=== PATIENT | male | born 1965 | race Caucasian/White ===

== ENCOUNTER 2020-08-20 11:02 | Outpatient (REF) | payer MEDICARE, MEDICAID, SELFPAY | END 2020-08-20 11:03 | disposition home or self-care (01) | LOC: HO.LAB 11:02 | PROVIDERS: PCP Nurse Practitioner Primary Care; Visit Provider Internal Medicine | DX: Z20.828 Contact with and (suspected) exposure to other viral communicable diseases (principal) | CPT/HCPCS: C9803; U0003 ==

== ENCOUNTER 2021-11-25 16:33 | Emergency (ER) | payer MEDICARE, MEDICAID, SELFPAY ==
--- NOTE | ~2021-11-25 | XR_ITS ---
EXAMINATION: XR HIP, RIGHT CLINICAL INFORMATION: Hip pain COMPARISON: Right hip 12/12/2018 TECHNIQUE: Two views of the right hip. FINDINGS: Status post right hip replacement. Orthopedic components in position. No fracture. No radiographic evidence of loosening. There is marked degenerative arthropathy of the left hip. There is [id number] contact between the femur and acetabulum with flattening of the acetabular and femoral head weightbearing portion of bone. Large marginal bone spurs of femur and acetabulum. Sacroiliac joints are normal. Mild subchondral osteosclerosis inferior symphysis pubis. Mild degenerative spondylosis of lower lumbar spine. XR/XR hip RT min 2V IMPRESSION: 1. No acute abnormality. 2. Status post right hip replacement. 3. Marked degenerative joint disease of left hip.
[2021-11-25 16:36] VITALS: BP 141/114; PULSE 88; RESP 18; TEMP 37.1; O2SAT 97; BMI 37.1
[2021-11-25 18:00] VITALS: BP 164/100; PULSE 78; RESP 18; O2SAT 97
--- NOTE | 2021-11-25 18:00 | PC.NURSE ---
PT STANDING IN DOORWAY. XRAYS TAKEN. WAITING EVAL.
--- NOTE | 2021-11-25 18:13 | ED.EXTPRO ---
HPI - Extremity Problem General Chief complaint: Extremity Injury, Lower Stated complaint: hip pain, had surg 2018 Time Seen by Provider: 11/25/21 17:17 Source: patient Mode of arrival: ambulatory Limitations: no limitations History of Present Illness HPI Narrative: Patient is status post right THR 2019 noticed pain in the right gluteal area for last 3 days no injury able to ambulate put pressure on his right foot pain radiates from the back of the R gluteal area to the leg no paresthesia no motor weakness Related Data Previous Rx's Medication Instructions Recorded ibuprofen 800 mg tablet 800 mg PO Q8H PRN #90 tab 05/16/21 cyclobenzaprine 10 mg tablet 10 mg PO Q8H #20 tab 11/25/21 tramadol 50 mg tablet 50 mg PO Q6H PRN #20 tab 11/25/21 Allergies Allergy/AdvReac Type Severity Reaction Status Date / Time No Known Allergies Allergy Verified 11/25/21 16:36 [No Known Allergies*] Review of Systems Review of Systems: Yes all other systems are reviewed and are negative [facility] Social History Social History Advance Directives: No Advance Directives Information Provided: No Physical Exam Vital Signs: Vital Signs: Last Vital Signs Temp 98.8 F 11/25/21 16:36 Pulse 88 11/25/21 16:36 Resp 18 11/25/21 16:36 BP 141/114 H 11/25/21 16:36 Pulse Ox 97 11/25/21 16:36 BMI result Body Mass Index 37.1 Appearance: Alert. Oriented X3. No acute distress. Extremities: Tenderness right gluteal area/sciatic notch SLR positive at 45 degrees on the right side no motor or sensory deficit good hip movements without any pain patient can stand on right hip without any significant pain No lower extremity edema. No calf tenderness no spinal tenderness Neuro: Oriented X 3. No motor deficit. No sensory deficit Discharge Plan Discharge Clinical Impression: Sciatica Patient Disposition: Home, Self-Care Instructions: Sciatica (ED) Additional Instructions: Take pain medication and muscle relaxant as prescribed Apply ice Prescriptions: New cyclobenzaprine 10 mg tablet 10 mg PO Q8H Qty: 20 0RF tramadol 50 mg tablet 50 mg PO Q6H PRN (Reason: pain) Qty: 20 0RF No Action ibuprofen 800 mg tablet 800 mg PO Q8H PRN (Reason: for pain) Qty: 90 3RF
[2021-11-25] MEDS: oxyCODONE HCl Immed Release 5 MG TABLET 10 MG PO (18:30)
[2021-11-25] MEDS: Cyclobenzaprine HCl 10 MG TABLET PO (18:31)
== END 2021-11-25 18:34 | disposition home or self-care (01) ==
PROVIDERS: Emergency Provider Internal Medicine
DX: M54.31 Sciatica, right side (principal)
CPT/HCPCS: 73502; 99283; 99284

== ENCOUNTER 2021-12-16 12:54 | Outpatient (REF) | payer MEDICARE, MEDICAID, SELFPAY ==
--- NOTE | ~2021-12-16 | XR_ITS ---
EXAMINATION: XR PELVIS XR HIP-RIGHT CLINICAL INFORMATION: Right hip pain. COMPARISON: Pelvis including right hip done on 11/25/2021. TECHNIQUE: Single frontal view of the pelvis and 2 views of the right hip were obtained. FINDINGS: RIGHT HIP AND PELVIS: Postsurgical changes of total right hip arthroplasty is noted with intact hardware and satisfactory alignment. No evidence of any periprosthetic loosening or fracture present. Severe osteoarthrosis of the left hip is noted, similar to prior study. XR/XR hip RT min 2V IMPRESSION: 1. Stable postsurgical changes of right hip arthroplasty showing intact hardware and satisfactory alignment, unchanged since 11/25/2021. 2. Severe osteoarthrosis of the left hip, unchanged since 11/25/2021.
--- NOTE | ~2021-12-16 | XR_ITS ---
EXAMINATION: XR PELVIS XR HIP-RIGHT CLINICAL INFORMATION: Right hip pain. COMPARISON: Pelvis including right hip done on 11/25/2021. TECHNIQUE: Single frontal view of the pelvis and 2 views of the right hip were obtained. FINDINGS: RIGHT HIP AND PELVIS: Postsurgical changes of total right hip arthroplasty is noted with intact hardware and satisfactory alignment. No evidence of any periprosthetic loosening or fracture present. Severe osteoarthrosis of the left hip is noted, similar to prior study. XR/XR pelvis 1-2V IMPRESSION: 1. Stable postsurgical changes of right hip arthroplasty showing intact hardware and satisfactory alignment, unchanged since 11/25/2021. 2. Severe osteoarthrosis of the left hip, unchanged since 11/25/2021.
== END 2021-12-16 12:55 | disposition home or self-care (01) ==
LOC: HO.HOSX 12:54
PROVIDERS: Visit Provider Physician Assistant
DX: T84.84XA Pain due to internal orthopedic prosthetic devices, implants and grafts, initial encounter (principal); G57.01 Lesion of sciatic nerve, right lower limb; M53.3 Sacrococcygeal disorders, not elsewhere classified; Z96.641 Presence of right artificial hip joint
CPT/HCPCS: 72170; 73502; 99202

== ENCOUNTER 2022-04-21 13:48 | Outpatient (REF) | payer MEDICARE, MEDICAID, SELFPAY ==
--- NOTE | ~2022-04-21 | CT_ITS ---
EXAMINATION: CT CHEST SCREENING CLINICAL INFORMATION: Nicotine dependence. Current smoker. COMPARISON: None. TECHNIQUE: Multidetector volumetric CT imaging of the chest is performed without contrast using low dose technique. Additional 2D coronal and sagittal reformatted images and axial 3D maximum intensity projection (MIP) images are generated on the CT workstation. This CT examination was performed using dose optimization techniques as appropriate, variously including the following: *Automated exposure control *Adjustment of mA and/or kV according to patient size (this includes techniques or standardized protocols for targeted exams where dose is matched to indication/reason for exam; i.e. extremities or head) *Use of iterative reconstruction technique DLP: 70 mGy-cm FINDINGS: LUNGS: The lungs are clear with no evidence of pulmonary nodules. There are minimal atelectatic changes in the lingula. MEDIASTINUM: The right thyroid lobe is normal. The left thyroid lobe is atrophic or surgically removed. Central trachea and the bronchi are widely patent. There are small shotty lymph nodes in the mediastinum. The heart size and great vessels are of normal caliber. No pericardial effusion. PLEURA: There is no pleural effusion. No pleural mass or thickening. AXILLA: No lymphadenopathy. UPPER ABDOMEN: Visualized liver, spleen, pancreas and bilateral adrenal glands are unremarkable. OSSEOUS STRUCTURES: There is mild ventral spondylosis of the mid and lower dorsal and upper lumbar spines. No aggressive lytic or sclerotic process is seen. CT/CT lung screening IMPRESSION: No acute process. No pulmonary nodule or mass. Minimal atelectatic changes in the lingula. ASSESSMENT: Lung-RADS category 1: Negative RECOMMENDATION: Low-dose annual CT chest.
== END 2022-04-21 13:49 | disposition home or self-care (01) ==
LOC: HO.CT 13:48
PROVIDERS: PCP Nurse Practitioner Primary Care; Visit Provider Physician Assistant Medical
DX: Z12.2 Encounter for screening for malignant neoplasm of respiratory organs (principal); F17.210 Nicotine dependence, cigarettes, uncomplicated
CPT/HCPCS: 71271; G0296

== ENCOUNTER 2022-09-18 09:07 | Outpatient (REF) | payer MEDICARE, MEDICAID, SELFPAY | END 2022-09-18 09:08 | disposition home or self-care (01) | LOC: HO.HOSX 09:07 | PROVIDERS: Visit Provider Physician Assistant | DX: Z13.89 Encounter for screening for other disorder (principal) ==

== ENCOUNTER 2022-09-21 17:51 | Outpatient (REF) | payer MEDICARE, MEDICAID, SELFPAY ==
--- NOTE | ~2022-09-21 | XR_ITS ---
EXAMINATION: XR HIP, RIGHT CLINICAL INFORMATION: Pain COMPARISON: 12/16/2021 TECHNIQUE: Two views of the right hip. FINDINGS: Status post right total hip arthroplasty without evidence of hardware complication. Severe arthrosis of the left hip joint is again noted. XR/XR hip RT w PEL1V IMPRESSION: Status post right total hip arthroplasty without evidence of hardware complication.
== END 2022-09-21 17:52 | disposition home or self-care (01) ==
LOC: HO.HOSX 17:51
PROVIDERS: Visit Provider Physician Assistant
DX: M16.12 Unilateral primary osteoarthritis, left hip (principal); Z96.641 Presence of right artificial hip joint
CPT/HCPCS: 73502; 99212

== ENCOUNTER → 2022-12-07 13:00 | Outpatient (BNVA) | payer MEDICARE, MEDICAID, SELFPAY | PROVIDERS: PCP Nurse Practitioner Primary Care; Visit Provider Physician Assistant | DX: M16.12 Unilateral primary osteoarthritis, left hip (principal) | CPT/HCPCS: 99212 ==

== ENCOUNTER 2022-12-12 09:12 | Inpatient (IN) | payer MEDICARE, MEDICAID, SELFPAY ==
[2022-12-06 12:28] VITALS: BP 139/66; PULSE 74; RESP 16; O2SAT 96; BMI 36.8
--- NOTE | 2022-12-06 12:52 | P.CONAN_ITS ---
HPI - Anesthesia Eval Consult details Narrative: 57 yo male patient for Left total hip arthroplasty PMFSH Active Problems Active Problems: All Active Problems (Updated 12/06/22 @ 12:16 by Chanda Medina RN) Piriformis syndrome of right side (Acute) Sacroiliac joint pain (Acute) Osteoarthritis of left hip (Acute) Personal history of nicotine dependence (Acute)- Quit 1 year ago H/o ROXANNA. Never used CPAP machine (Never picked up) Past Medical History Medical History (Updated 12/06/22 @ 13:44 by Chanda Medina RN) Depression with anxiety Diabetes mellitus type 2, controlled, without complications History of opioid abuse Hx of drug dependence Hypertension Hypogonadism in male Low testosterone OA (osteoarthritis) Personal history of nicotine dependence Sleep apnea Family History Family history of problems with anesthesia: No Surgical History Surgical History H/O colonoscopy History of back surgery History of incision and drainage History of total right hip replacement (~2018) History of Problems with Anesthesia: No Social History Social History Are you a primary primary care pediatrician to a significant other at home: No Do you presently have visiting nurse or other home services: No Patient Tobacco Use Status: Former Tobacco user Quit Date: 01/2022 Tobacco use type: Cigarette Cigarettes Per Day: 10 Years Smoked: 20 Meds Allergies Allergy/AdvReac Type Severity Reaction Status Date / Time No Known Allergies Allergy Verified 09/21/22 09:46 [No Known Allergies*] Home Medications Medication Instructions Recorded Confirmed Last Taken Type nicotine 7 mg/24 hr daily 1 patch transdermal DAILY PRN 06/05/22 12/06/22 Unknown History transdermal patch Smoking Cessation sildenafil 50 mg tablet (Viagra) 50 mg PO DAILY PRN Erectile 06/05/22 12/05/22 Unknown History Dysfunction Exam Exam Date and Time: December 06, 2022 125 Height,Weight and Vital Signs: Height 5 ft 6 in Weight 103.4 kg Last Vital Signs Pulse 74 12/06/22 12:28 Resp 16 12/06/22 12:28 BP 139/66 12/06/22 12:28 Pulse Ox 96 12/06/22 12:28 O2 Del Method Room Air 12/06/22 12:28 Airway Mallampati Class: III TM Dist: >3cm Neck ROM: Full Loose/Missing/Broken Teeth: Yes (Many missing. Only few teeth in bottom. Denies loose or broken teeth) Heart: RRR + systolic murmur Lungs: CTAB Assessment and Plan Assessment Anesthesia Assessment: Anesthesia Plan Discussed and Chart Reviewed Final Anesthetic Review Family History of Problems with Anesthesia: No History of Problems with Anesthesia: No ASA Class: III Final Preanesthetic Review: No Changes in Pt Med Stat, Meds/Allgs Chart Reviewed, Consent Obtained/Reviewed and Anes Risks/Benef Reviewed Patient Risk: Intermediate Procedure Risk: Intermediate Assessment/Block/Sedation in SS: Assess/Block/Sedation-SS Anesthetic Plan Anesthetic Plan: GA Disposition: Standard PACU and Inp. Admit - Standard Bed
[2022-12-06 15:43] LABS: MRSA Nasal PCR NEGATIVE (Negative); SA Nasal PCR NEGATIVE (Negative)
[2022-12-12] VITALS (15 sets, daily range): BP systolic 89–170; BP diastolic 58–80; PULSE 65–100; RESP 12–20; TEMP 36.6–37.4; O2SAT 95–100
--- NOTE | ~2022-12-12 | XR_ITS ---
EXAMINATION: XR PELVIS CLINICAL INFORMATION: Postop COMPARISON: Previous x-ray September 2022 TECHNIQUE: AP view of the pelvis. FINDINGS: There is a new left hip replacement in satisfactory position. There is a right hip replacement in satisfactory position. No fracture or dislocation. XR/XR pelvis 1-2V IMPRESSION: Satisfactory appearance of left hip replacement.
[2022-12-12 09:40] LABS: Amphetamine Screen Urine Not Detected (Not Detect); Barbiturates, Urine Not Detected (Not Detect); Benzodiazepines Screen Urine Not Detected (Not Detect); Cannabinoid Screen Urine Not Detected (Not Detect); Cocaine Screen Urine Not Detected (Not Detect); Fentanyl, urine Not Detected (Not Detect); Opiate Screen Urine Not Detected (Not Detect); Phencyclidine Screen Urine Not Detected (Not Detect)
[2022-12-12 09:43] LABS: COVID-19 Test Negative (Negative); IDNOW Serial# 55D5AD1C
[2022-12-12 10:04] LABS: Hemoglobin 13.1 g/dl (14.0-18.0)
[2022-12-12] MEDS: oxyCODONE HCl ER 10 MG TAB.ER.12H PO ×2 (10:23→20:12)
[2022-12-12 10:28] LABS: Glucose, Whole Blood 103 mg/dL (60-115)
--- NOTE | 2022-12-12 10:52 | HO.ANESPROP2 ---
HPI - Anesthesia Eval Consult details Narrative: 57 M for left hip replaceent FUnctinal status greater than 4 mets , no chest pain PMFSH Active Problems Active Problems: All Active Problems (Updated 12/06/22 @ 13:44 by Chanda Medina RN) Piriformis syndrome of right side (Acute) Sacroiliac joint pain (Acute) Osteoarthritis of left hip (Acute) Personal history of nicotine dependence (Acute) Past Medical History Medical History Depression with anxiety Diabetes mellitus type 2, controlled, without complications History of opioid abuse Hx of drug dependence Hypertension Hypogonadism in male Low testosterone OA (osteoarthritis) Osteoarthritis of left hip Personal history of nicotine dependence Sleep apnea Functional capacity: independent ambulation Family History Family history of problems with anesthesia: No Surgical History Surgical History H/O colonoscopy History of back surgery History of incision and drainage History of total right hip replacement (~2018) History of Problems with Anesthesia: No Social History Social History Household Members: None Housing: Apartment Are you a primary cardiac care unit nurse to a significant other at home: No Do you presently have visiting nurse or other home services: No Patient Tobacco Use Status: Former Tobacco user Quit Date: last year Tobacco use type: Cigarette Cigarettes Per Day: 10 Years Smoked: 20 years service: No Current occupational status: disabled Meds Allergies Allergy/AdvReac Type Severity Reaction Status Date / Time No Known Allergies Allergy Verified 12/28/22 09:33 [No Known Allergies*] Active Medications: Current Medications Lactated Ringer's (Lr) 1,000 mls @ 100 mls/hr IVCONT .Q10H NED Acetaminophen (Ofirmev) 1,000 mg in 100 mls @ 400 mls/hr IV PREOP ONE Stop: 12/13/22 08:14 Home Medications Medication Instructions Recorded Confirmed Last Taken Type buprenorphine 8 mg-naloxone 2 mg 10 mg sublingual BID 12/12/22 12/12/22 Unknown History sublingual film (Suboxone) metformin 750 mg tablet,extended 750 mg PO DAILY@1700 12/12/22 12/12/22 Unknown History release 24 hr Exam Exam Date and Time: December 12, 2022 1052 Height,Weight and Vital Signs: Height 5 ft 6 in Weight 103.4 kg Last Vital Signs Temp 97.8 F 12/12/22 10:26 Pulse 69 12/12/22 10:26 Resp 15 12/12/22 10:26 BP 170/80 H 12/12/22 10:26 Pulse Ox 95 12/12/22 10:26 O2 Del Method Room Air 12/12/22 10:26 Pertinent Lab Results Pertinent Lab Results: Laboratory Tests 12/06/22 12/06/22 12/12/22 13:31 13:50 09:15 Hgb Hct POC Glucose Nasal Screen MRSA (PCR) NEGATIVE Nasal S. aureus Screen NEGATIVE Nasal MRSA/S.aureus Interp SEE NOTE Urine Opiates Screen Urine Fentanyl Screen Ur Barbiturates Screen Ur Phencyclidine Scrn Ur Amphetamines Screen U Benzodiazepines Scrn Urine Cocaine Screen U Marijuana (THC) Screen COVID-19 (JACQUELINE) Negative COVID-19 Clin Com See Note Blood Type B Positive Antibody Screen NEGATIVE 12/12/22 12/12/22 12/12/22 09:20 09:49 10:19 Hgb 13.1 L Hct 40.0 L POC Glucose 103 Nasal Screen MRSA (PCR) Nasal S. aureus Screen Nasal MRSA/S.aureus Interp Urine Opiates Screen Not Detected Urine Fentanyl Screen Not Detected Ur Barbiturates Screen Not Detected Ur Phencyclidine Scrn Not Detected Ur Amphetamines Screen Not Detected U Benzodiazepines Scrn Not Detected Urine Cocaine Screen Not Detected U Marijuana (THC) Screen Not Detected COVID-19 (JACQUELINE) COVID-19 Clin Com Blood Type Antibody Screen Airway Mallampati Class: III TM Dist: >3cm Denture: Upper Partial: Lower Loose/Missing/Broken Teeth: Yes Assessment and Plan Assessment Anesthesia Assessment: Anesthesia Plan Discussed and Chart Reviewed Final Anesthetic Review Family History of Problems with Anesthesia: No History of Problems with Anesthesia: No NPO: Yes ASA Class: III Final Preanesthetic Review: Meds/Allgs Chart Reviewed, Consent Obtained/Reviewed and Anes Risks/Benef Reviewed Patient Risk: Intermediate Procedure Risk: Intermediate Anesthetic Plan Anesthetic Plan: GA and Agree w/ Assess. and Plan Disposition: Standard PACU and Inp. Admit - Standard Bed
--- NOTE | 2022-12-12 11:19 | MHC.SHP ---
Pre-Procedural Eval Section A Date of Service: 12/12/22 The patient is an INPATIENT: No Changes since office visit: No Cold of Flu in the past 2 weeks, No New Medical Problems, No Changes in Medication and No Patient answered all questions The History & Physical has been completed within 30 days and I have reviewed it.: Yes Section B Chief Complaint: LTHA Allergies: Allergies Allergy/AdvReac Type Severity Reaction Status Date / Time No Known Allergies Allergy Verified 09/21/22 09:46 [No Known Allergies*] Plan I have reviewed the history and physical and performed a pertinent physical examination on my patient. No changes have occurred unless specified. Time Spent With Patient Time: Total time managing care of this patient today ____ minutes.
--- NOTE | 2022-12-12 13:48 | PM.OP ---
Brief Operative Note Date of Service: 12/12/22 Pre-op diagnosis: Left hip OA Post-op diagnosis: same Procedure: Left DIA Implants: [place] Trident 2 50/ Accolade2 #5 127 deg/ +2.5 36 ceramic femoral head Surgeon: Adi Villarreal MD Anesthesia: GETA and local Was an Technology Internship used for this Procedure?: Yes Technology Internship: Cody Hoffman Estimated blood loss (mL): 250 IV fluids (mL): 1,000 Pathology: other Condition: stable Disposition: PACU
[2022-12-12] MEDS: HYDROmorphone HCl 0.5 MG/0.5 ML SYRINGE 0.25 MG IVPUSH ×2 (14:29→20:19)
[2022-12-12] MEDS: 0.9 % Sodium Chloride Flush 3 ML SYRINGE IVFLUSH (16:55)
[2022-12-12] MEDS: Lactated Ringers 1,000 ML 100 ML IVCONT (16:58)
[2022-12-12] MEDS: ceFAZolin Sodium/Dextrose,Iso 2 GM/50 ML PIGGYBACK IV (17:47)
--- NOTE | 2022-12-12 17:51 | HO.PM.IMPN ---
Subjective Subjective Date of Service: 12/12/22 Review of Systems 57-year-old man with history of diabetes mellitus is status post right total hip arthroplasty. Surgery was unremarkable. Patient denies any nausea, vomiting diarrhea with eating or drinking at this point. He is hemodynamically stable. No complaints of pain at this time. Physical Exam Vital Signs: Vital Signs: Last Vital Signs Temp 97.9 F 12/12/22 16:04 Pulse 94 12/12/22 16:21 Resp 20 12/12/22 16:21 BP 135/75 12/12/22 16:21 Pulse Ox 96 12/12/22 16:21 O2 Del Method Nasal Cannula 12/12/22 16:21 O2 Flow Rate 2 12/12/22 16:21 BMI result Body Mass Index 36.8 Appearing in no acute distress head is normocephalic atraumatic eyes pupils are PERRLA sclera is anicteric mouth throat mucous membranes are intact and moist neck is supple no lymphadenopathy, no JVD noted lung sounds are clear to auscultation heart regular rate rhythm, clear S1, S2 positive bowel sounds, abdomen is soft, nontender neuro patient is alert x3, no focal deficits Surgical dressing intact, surgical incision of visualized Objective Data Active Medications Acetaminophen (Acetaminophen 325 Mg Tablet) 650 mg PO Q6H PRN PRN Reason: Pain, Mild (Pain Scale 1-3) Aspirin (Aspirin 325 Mg Tablet) 325 mg PO BID NED Celecoxib (Celecoxib 200 Mg Capsule) 200 mg PO BID NED Docusate Sodium (Docusate Sodium 100 Mg Capsule) 100 mg PO BID NED Hydromorphone HCl (Hydromorphone Hcl 0.5 Mg/0.5 Ml Syringe) 0.25 mg IVPUSH Q4H PRN; Protocol PRN Reason: Pain, Severe (Pain Scale 7-10) Lactated Ringer's (Lr) 1,000 mls @ 100 mls/hr IVCONT .Q10H NED Last Admin: 12/12/22 16:58 Dose: 100 mls/hr Documented By: JONATHAN Cefazolin Sodium/Dextrose (Ancef) 2 gm in 50 mls @ 100 mls/hr IV POSTOP ONE Stop: 12/12/22 18:44 Last Admin: 12/12/22 17:47 Dose: 100 mls/hr Documented By: JONATHAN Ondansetron HCl (Ondansetron Hcl 4 Mg/2 Ml Vial) 4 mg IVPUSH Q8H PRN PRN Reason: Nausea and Vomiting Oxycodone HCl (Oxycodone Hcl Immed Release 5 Mg Tablet) 5 mg PO Q4H PRN PRN Reason: Pain, Moderate (Pain Scale 4-6 Oxycodone HCl (Oxycodone Hcl Er 10 Mg Tab.Er.12h) 10 mg PO BID NED Sodium Chloride (0.9 % Sodium Chloride Flush 3 Ml Syringe) 3 ml IVFLUSH QSHIFT NED Last Admin: 12/12/22 16:55 Dose: 3 ml Documented By: BEIT Labs 12/12/22 09:49 Labs: Laboratory Results - last 24 hr 12/12/22 12/12/22 12/12/22 09:15 09:20 10:19 POC Glucose 103 Urine Opiates Screen Not Detected Urine Fentanyl Screen Not Detected Ur Barbiturates Screen Not Detected Ur Phencyclidine Scrn Not Detected Ur Amphetamines Screen Not Detected U Benzodiazepines Scrn Not Detected Urine Cocaine Screen Not Detected U Marijuana (THC) Screen Not Detected COVID-19 (JACQUELINE) Negative COVID-19 Clin Com See Note Assessment and Plan (1) Osteoarthritis of left hip: Status: Acute Plan 57-year-old man status post left total hip arthroplasty Left total hip arthroplasty Management as per surgical team Pain management Diabetes mellitus type 2 Sliding scale, ADA diet Obesity. BMI 36.8 Discussed importance of weight management as this may be contributing to worsening of other comorbidities DVT prophylaxis with full-dose aspirin Attending Dr. Millan Full code Medical consultation completed. Will sign off Time Spent With Patient Time: Total time managing care of this patient today ____ minutes. Quality Stroke Does the patient have a stroke diagnosis?: No VTE Prior VTE?: No VTE Risk Level:: Medical - moderate - high VTE Device Contraindication: N/A - Device Ordered VTE Drug Contraindication: Treatment Not Indicated
[2022-12-12] MEDS: oxyCODONE HCl Immed Release 5 MG TABLET PO (17:53)
[2022-12-12] MEDS: Celecoxib 200 MG CAPSULE PO (20:12)
[2022-12-12] MEDS: Docusate Sodium 100 MG CAPSULE PO (20:12)
[2022-12-13] MEDS: Lactated Ringers 1,000 ML 100 ML IVCONT (02:37)
[2022-12-13] MEDS: HYDROmorphone HCl 0.5 MG/0.5 ML SYRINGE 0.25 MG IVPUSH ×3 (02:44→16:48)
[2022-12-13 03:20] VITALS: BP 119/59; PULSE 90; RESP 18; TEMP 36.8; O2SAT 95
[2022-12-13 04:00] VITALS: RESP 18
[2022-12-13 06:12] LABS: MANUAL DIFF FLAG NO
[2022-12-13 06:16] LABS: Basophils Percent Auto 0.2 % (0-2); Eosinophils Percent Auto 0.1 % (0-4); Hematocrit 29.2 % (42.0-52.0); Hemoglobin 9.6 g/dl (14.0-18.0); Imm Gran Abs Auto 0.08 X10*3/uL (0.00-0.03); Imm Gran Pct Auto 0.6 % (0.0-0.4); Lymphocytes Absolute Auto 1.6 X10*3/uL (1.2-4.9); Lymphocytes Percent Auto 13.2 % (20-40); Mean Corpuscular HGB Conc 32.9 g/dl (31.0-36.0); Mean Corpuscular Hemoglobin 29.4 pg (27.0-33.0); Mean Corpuscular Volume 89.6 fL (80.0-98.0); Mean Platelet Volume 10.5 fL (9.4-12.4); Monocytes Absolute Auto 1.3 X10*3/uL (0.1-1.2); Monocytes Percent Auto 10.4 % (2-11); Neutrophils Absolute Auto 9.4 x10*3/uL (2.0-8.3); Neutrophils Percent Auto 75.5 % (45-73); Platelet Count 158 X10*3/uL (160-400); Red Blood Count 3.26 X10*6/uL (4.60-5.80); Red Cell Distribution Width 13.7 % (11.0-16.0); White Blood Count 12.4 X10*3/uL (4.8-10.8)
[2022-12-13 06:42] LABS: Anion Gap 11 (12-20); Blood Urea Nitrogen 17 mg/dL (9-16); Calcium 8.2 mg/dL (8.4-10.2); Carbon Dioxide 24 mmol/L (22-29); Chloride 108 mmol/L (96-108); Creatinine Clr Calc Pharmacy 109.2; Estimated Glomerular Filt Rate > 60; Glucose Fasting 172 mg/dL (60-99); Sodium 139 mmol/L (135-145)
[2022-12-13 07:29] VITALS: BP 110/56; PULSE 76; RESP 17; TEMP 36.7; O2SAT 98
--- NOTE | 2022-12-13 08:05 | PM.PNORT ---
Subjective Subjective Date of Service: 12/13/22 Interval history: pod 1 status post left total hip arthroplasty with Dr. Villarreal. Patient is resting in bed comfortably. Pain is well managed. No additional complaints. Physical Exam Vital Signs: Vital Signs: Last Vital Signs Temp 98.1 F 12/13/22 07:29 Pulse 76 12/13/22 07:29 Resp 17 12/13/22 07:29 BP 110/56 L 12/13/22 07:29 Pulse Ox 98 12/13/22 07:29 O2 Del Method Room Air 12/13/22 07:29 O2 Flow Rate 2.5 12/12/22 23:48 BMI result Body Mass Index 36.8 Const: General: cooperative, healthy appearing and no acute distress Resp: Effort & Inspection: normal respiratory effort and able to speak in complete sentences Cardio: Rate: regular rate Peripheral pulses: Peripheral pulses 2+ throughout GI: Palpation (GI): Soft to palpation Skin: Lesions: no lesions Rashes: no rashes Extrem: Other: Left hip Aquacel dressing is clean dry and intact. Able to dorsiflex and plantar flex. NVI. Procedures Date of Service Date of Service: 12/13/22 Progress Note: A&P Assessment and plan (1) Status post total hip replacement, left: Status: Acute Plan Continue pain mgmnt Begin ASA for dvt ppx begin PT/OT for LTHA Dispo planning-Pending PT eval, pain mgmnt Time Spent With Patient Time: Total time managing care of this patient today ____ minutes. Quality Stroke Does the patient have a stroke diagnosis?: No VTE Prior VTE?: No VTE Risk Level:: Medical - moderate - high VTE Device Contraindication: N/A - Device Ordered VTE Drug Contraindication: Treatment Not Indicated
[2022-12-13] MEDS: Acetaminophen 325 MG TABLET 650 MG PO (08:28)
[2022-12-13] MEDS: oxyCODONE HCl Immed Release 5 MG TABLET PO (08:28)
[2022-12-13] MEDS: oxyCODONE HCl ER 10 MG TAB.ER.12H PO ×2 (08:28→19:45)
[2022-12-13] MEDS: Celecoxib 200 MG CAPSULE PO ×2 (08:29→19:44)
[2022-12-13] MEDS: Docusate Sodium 100 MG CAPSULE PO ×2 (08:29→19:44)
--- NOTE | 2022-12-13 11:27 | MHC.CM.PN ---
IMM 12/13/22 Male s/p L DIA He lives by himself. He is independent with all functional mobility. A copy of his HCP has been requested. PT eval rec Home Services. Patients preference is [facility]. PMH R DIA patient went to [facility] and then Home with services. He would like to go for [facility] @ discharge. He does not qualify for STR per PT eval. CM will follow for any new needs @ discharge. Patient will arrange for transportation.
[2022-12-13] MEDS: Aspirin 325 MG TABLET PO ×2 (12:15→19:44)
--- NOTE | 2022-12-13 12:45 | HO.POSTANES ---
Post Anesthesia Evaluation Post Anesthesia Evaluation Vital Signs: Vital Signs Temp Pulse Resp BP Pulse Ox O2 Del Method 12/13/22 07:29 98.1 F 76 17 110/56 L 98 Room Air 12/13/22 03:20 98.3 F 90 18 119/59 L 95 Room Air 12/13/22 04:00 18 Anesthesia: General Mental Status: Awake Pain Control: Satisfactory Nausea/Vomiting: None Hydration: Adequate Anesthesia-Related Issues: No Anes. Related Issues
[2022-12-13 15:52] VITALS: BP 115/56; PULSE 93; RESP 18; TEMP 36.6; O2SAT 94
[2022-12-13] MEDS: 0.9 % Sodium Chloride Flush 3 ML SYRINGE IVFLUSH ×2 (15:52→19:47)
[2022-12-13 19:35] VITALS: BP 107/55; PULSE 89; RESP 17; TEMP 36.3; O2SAT 95
[2022-12-14 03:29] VITALS: BP 118/59; PULSE 86; RESP 16; TEMP 36.6; O2SAT 97
[2022-12-14] MEDS: HYDROmorphone HCl 0.5 MG/0.5 ML SYRINGE 0.25 MG IVPUSH (04:34)
[2022-12-14 06:35] LABS: MANUAL DIFF FLAG NO
[2022-12-14 06:38] LABS: Basophils Percent Auto 0.3 % (0-2); Eosinophils Absolute Auto 0.1 X10*3/uL (0.0-0.4); Eosinophils Percent Auto 0.6 % (0-4); Hemoglobin 9.3 g/dl (14.0-18.0); Imm Gran Abs Auto 0.07 X10*3/uL (0.00-0.03); Imm Gran Pct Auto 0.6 % (0.0-0.4); Lymphocytes Absolute Auto 2.1 X10*3/uL (1.2-4.9); Lymphocytes Percent Auto 17.9 % (20-40); Mean Corpuscular HGB Conc 33.2 g/dl (31.0-36.0); Mean Corpuscular Hemoglobin 30.1 pg (27.0-33.0); Mean Corpuscular Volume 90.6 fL (80.0-98.0); Mean Platelet Volume 10.6 fL (9.4-12.4); Monocytes Absolute Auto 1.4 X10*3/uL (0.1-1.2); Monocytes Percent Auto 11.8 % (2-11); Neutrophils Percent Auto 68.8 % (45-73); Platelet Count 150 X10*3/uL (160-400); Red Blood Count 3.09 X10*6/uL (4.60-5.80); Red Cell Distribution Width 14.1 % (11.0-16.0); White Blood Count 11.6 X10*3/uL (4.8-10.8)
[2022-12-14 06:59] LABS: Anion Gap 11 (12-20); Blood Urea Nitrogen 17 mg/dL (9-16); Calcium 8.3 mg/dL (8.4-10.2); Carbon Dioxide 28 mmol/L (22-29); Chloride 105 mmol/L (96-108); Creatinine Clr Calc Pharmacy 122.7; Estimated Glomerular Filt Rate > 60; Glucose Fasting 122 mg/dL (60-99); Potassium 4.2 mmol/L (3.3-5.1); Sodium 140 mmol/L (135-145)
[2022-12-14] MEDS: Celecoxib 200 MG CAPSULE PO (07:35)
[2022-12-14] MEDS: traMADoL HCL 50 MG TABLET PO (07:35)
[2022-12-14] MEDS: Acetaminophen 325 MG TABLET 650 MG PO (07:35)
[2022-12-14] MEDS: Aspirin 325 MG TABLET PO (07:35)
[2022-12-14] MEDS: Docusate Sodium 100 MG CAPSULE PO (07:35)
[2022-12-14 09:03] VITALS: BP 119/57; PULSE 102; RESP 20; TEMP 36.7; O2SAT 97
--- NOTE | 2022-12-14 09:21 | PC.NURSE ---
pt stated po pain meds decreased pain from 10/10 to 8/10
--- NOTE | 2022-12-14 10:03 | P.DS_ITS ---
DS: Providers Provider Date of Service: 12/14/22 Date of admission: 12/12/22 09:12 Primary care physician: Whit Montes De Oca NP Consults: 12/12/22 16:39 Consult to Hospitalist Routine Comment: Consulting Provider: Hospitalist Reason For Exam: medical managment DS: Diagnosis Discharge Diagnosis (1) Status post total hip replacement, left: Status: Acute DS: Summary Hospital Course Hospital Course: The patient underwent a successful left total hip arthroplasty on 12/12/22, was transferred to PACU and then to the floor to recover. During their stay, their vitals were stable, afebrile at . Labs were unremarkable, H/H . POD 1 he was started on ASA for DVT ppx, they also received Physical Therapy services twice a day. Physical therapy should include gait training, ROM and strengthening . Posterior precautions in place. Prior to discharge, his dressing was changed, incision clean dry and intact, new Aquacel dressing applied. The Aquacel dressing shoulder remain intact and dry at all times. Any concerns with the dressing, please contact orthopedic office. No showering. The plan is to be discharged home with VNA services. Time Spent with Patient Time attestation: Total time managing care of this patient today ____ minutes. Discharge coordination time: Less than 30 minutes Quality: Safe Use of Opioids Does Pt have an Active Cancer Diagnosis on the Problem List?: No Quality: Stroke Does the patient have a stroke diagnosis?: No Physical Exam Vital Signs: Vital Signs: Last Vital Signs Temp 98.0 F 12/14/22 09:03 Pulse 102 H 12/14/22 09:03 Resp 20 12/14/22 09:03 BP 119/57 L 12/14/22 09:03 Pulse Ox 97 12/14/22 09:03 O2 Del Method Room Air 12/14/22 09:03 O2 Flow Rate 2.5 12/12/22 23:48 BMI result Body Mass Index 36.8 Const: General: cooperative, healthy appearing and no acute distress Resp: Effort & Inspection: normal respiratory effort and able to speak in complete sentences Cardio: Rate: regular rate Peripheral pulses: Peripheral pulses 2+ throughout GI: Palpation (GI): Soft to palpation Skin: Lesions: no lesions Rashes: no rashes Extrem: Other: Left hip Aquacel dressing is clean dry and intact. Able to dorsiflex and plantar flex. NVI. DS: Data Data Completed and Pending Pending studies at discharge: Pending at discharge 12/12/22 12:56 Surgical [PTH] Routine Labs on day of discharge: Laboratory Results - last 24 hr 12/14/22 12/14/22 05:54 05:54 WBC 11.6 H RBC 3.09 L Hgb 9.3 L Hct 28.0 L MCV 90.6 MCH 30.1 MCHC 33.2 RDW 14.1 Plt Count 150 L MPV 10.6 Immature Gran % (Auto) 0.6 H Neut % (Auto) 68.8 Lymph % (Auto) 17.9 L [place] % (Auto) 11.8 H Eos % (Auto) 0.6 Baso % (Auto) 0.3 Lymph # (Auto) 2.1 [place] # (Auto) 1.4 H Eos # (Auto) 0.1 Baso # (Auto) 0.0 Abs Immat Gran (auto) 0.07 H Absolute Neuts (auto) 8.0 Absolute Nucleated RBC 0.000 Nucleated RBC % (auto) 0.0 Sodium 140 Potassium 4.2 Chloride 105 Carbon Dioxide 28 Anion Gap 11 L BUN 17 H Creatinine 0.73 Estim Creat Clear Calc 122.7 Estimated GFR > 60 Fasting Glucose 122 H Calcium 8.3 L Discharge Plan Discharge Anticipated Discharge Date/Time: 12/14/22 09:49 Patient Disposition: Home Health Service Discharge Diagnosis: LT DIA Referrals: Bailee Hernandez PA-C [Physician Showroom Sales Consultant] - 2 Weeks (12/28/22 3:00 [facility] Orthopedic Surgeons Bailee Hernandez PA-C) Discharge Medications: New docusate sodium 100 mg Capsule 100 mg PO BID 14 Days Qty: 28 0RF celecoxib 200 mg Capsule 200 mg PO BID 30 Days Qty: 60 0RF aspirin 325 mg Tablet 325 mg PO BID 42 Days Qty: 84 0RF acetaminophen 325 mg Tablet 650 mg PO Q6H PRN (Reason: Pain, Mild (Pain Scale 1-3)) 30 Days Qty: 240 0RF Continued metformin 750 mg tablet extended release 24 hr 750 mg PO DAILY@1700 buprenorphine-naloxone [Suboxone] 8-2 mg film 10 mg sublingual BID Discharge Orders: Discharge Order (Routine); Ordered 12/14/22 Ordered By: Cody Hoffman Diet: Regular diet Activity on Discharge: Use cane or walker Stand Alone Forms: Patient Portal Discharge page Care Plan Goals: Restore function of joint Health Concerns: none Plan of Treatment: Physical Therapy Pain management DVT prophylaxis Assessment: * Physical Therapy for Total hip arthroplasty: wbat, posterior precautions, gait training, ROM, strength * Limit stair climbing * No showering, no tub bath-keep dressing clean, dry and intact * No driving x6 weeks * Continue Aspirin twice a day x 6 weeks * Follow up with [facility] Orthopedics in 2 weeks: 12/28/22 3:00[facility] Orthopedic SurgeonsBailee Hernandez PA-C * --you will also have your first out patient PT eval on the day of your post op appt-so please plan on being in the office that day for an extended period of time.
--- NOTE | 2022-12-14 10:06 | P.F2F_ITS ---
Service Date Service Date: 12/14/22 Encounter Date of encounter: 12/14/22 Reasons for Services Signs and symptoms assessed: diff with ambulation, poor balance. Reason for physical therapy: home safety and mobility, therapeutic exercises, restore joint function, gait/transfer training, ADL training and energy conservation Reason for occupational therapy: home safety and mobility, therapeutic exercises, restore joint function, gait/transfer training, ADL training and energy conservation Overseeing Care: Adi Villarreal Homebound: Leaving the home is medically contraindicated at this time without the asist of a device and/or another person due th the listed conditions above and below. Reason homebound: unsteady gait / fall risk, pain with ambulation, poor balance / fall risk, shortness of breath at rest and unable to drive Homebound supporting statement: Pt. is considered home bound due to recent surgery. Unable to drive, poor balance, poor gait mechanics. Certification: Based on the above findings, I certify that this patient is confined to the home and needs intermittent long-term care, physical therapy and/or speech therapy, or continues to need occupational therapy. The patient is under my care, and I have initiated the establishment of the plan of care. The patient will be followed by a physician who will periodically review the plan of care. Time Spent With Patient Time: Total time managing care of this patient today ____ minutes.
[2022-12-14 10:07] VITALS: PULSE 92
--- NOTE | 2022-12-14 10:35 | MHC.CM.PN ---
IMM 12/13/22 Male S/P LT DIA is discharged home with [facility]. He has arranged for transport home.
--- NOTE | 2022-12-14 11:21 | PC.NURSE ---
pt educated on discharge paperwork, all belongings with pt. IV removed. tele not in place
--- NOTE | 2022-12-14 15:12 | W.PM.OPN ---
Operative Note Operative Note Date of Service: 12/14/22 Narrative: Date of Service: 12/12/22 Pre-op diagnosis: Left hip OA Post-op diagnosis: same Procedure: Left DIA Implants: [employer] Trident 2 50/ Accolade2 #5 127 deg/ +2.5 36 ceramic femoral head Surgeon: Adi Villarreal MD Anesthesia: GETA and local Was an Inspector Plating used for this Procedure?: Yes Inspector Plating: Cody Hoffman Estimated blood loss (mL): 250 IV fluids (mL): 1,000 Pathology: other Condition: stable Disposition: PACU Procedure in detail: Patient was brought into the operating room and placed in the right lateral decubitus position. All bony prominences were well padded and the limb was prepped and draped in standard sterile fashion. A time-out was called to identify proper site procedure proper surgeon IV antibiotics and 1 g of transaxemic acid were administered. I began by making a curvilinear incision over the posterolateral aspect of the greater trochanter. Dissection was taken down to the tensor fascia which was incised in line with the incision and a Charnley retractor was placed. Cautery was used to maintain hemostasis. The hip was internally rotated and the external rotators were identified. The vessels were cauterized and a full-thickness capsular/external rotator layer was developed starting just proximal to the piriformis. This layer was tagged and a dull Hohmann retractor was placed underneath the neck in the hip was dislocated. A neck cut was made 1 cm proximal to the lesser trochanter and the head and neck were removed and measured 50mm on the back table. The head was deformed and eburnated. I then removed the labrum and cauterized the fovea. I started with a 46 reamer and medialized to the inner table. I sequentially reamed up to a size 50 and impacted a 50mm cup at 45 degrees of inclination and 25 degrees of version. I then placed a liner and turned my attention to the femur. I identified the piriformis insertion and used this as a starting point for my leeanna cutter. The medius tendon was protected with a Hibs retractor. A Charnley awl was inserted in the canal and a curved curette used to remove the lateral bone. I irrigated copiously. I then sequentially broached in the patient's natural version to a size 5 and placed my trial implants. I used a #5/127/+2.5 based on my pre-operative template and his conmtralateral measurements. Using a trail head I took the hip through range of motion. I was satisfied with the stability. I removed all instrumentation and copiously irrigated. I placed my final femoral implant and again took the hip through range of motion and was satisfied with the stability and length. The final 2.5 implant was impacted in place and tyhe hip reduced. I then irrigated for 3 minutes with iodine and placed 1 g of local transaxemic acid. I performed a capsular closure with 2.0 fiberwire, Vandana's fascia with 0 Vicryl, subcuticular with 2-0 Vicryl and the skin with kurtis. Patient was placed into a sterile dressing. Patient was extubated brought to the recovery room in stable condition. There were no known complications.
== END 2022-12-14 11:21 | disposition home health service (06) | DRG 470 ==
LOC: HO.SSSA 11:29 → HO.S3 15:55
PROVIDERS: Nurse Practitioner; Physician Assistant; Admitting Provider Orthopaedic Surgery; PCP Nurse Practitioner Primary Care; Visit Provider Orthopaedic Surgery
PROC: 0SRB03A Replacement of Left Hip Joint with Ceramic Synthetic Substitute, Uncemented, Open Approach (ICD-10-PCS; CPT 27130; principal; 2022-12-12 11:50)
DX: M16.12 Unilateral primary osteoarthritis, left hip (principal); F11.20 Opioid dependence, uncomplicated; E66.9 Obesity, unspecified; Z68.36 Body mass index [BMI] 36.0-36.9, adult; Z20.822 Contact with and (suspected) exposure to COVID-19; Z87.891 Personal history of nicotine dependence; Z79.84 Long term (current) use of oral hypoglycemic drugs; Z79.899 Other long term (current) drug therapy
CPT/HCPCS: 27130; 36415; 72170; 80048; 80307; 82947; 85014; 85018; 85025; 86850; 86900; 86901; 87635; 87640; 87641; 88304; 88311; 97116; 97161; 97530; C1713; C1776; J0131; J0690; J1100; J1170; J2250; J2370; J2405; J2795; J3010

== ENCOUNTER → 2022-12-21 09:39 | Outpatient (BNVA) | payer MEDICARE, MEDICAID, SELFPAY | PROVIDERS: PCP Nurse Practitioner Primary Care; Visit Provider Physician Assistant ==

== ENCOUNTER 2022-12-28 07:05 | Outpatient (REF) | payer MEDICARE, MEDICAID, SELFPAY ==
--- NOTE | ~2022-12-28 | XR_ITS ---
EXAMINATION: XR PELVIS CLINICAL INFORMATION: Pain. COMPARISON: Radiographs dated 12/12/2022. TECHNIQUE: 2 AP views of the pelvis are submitted. FINDINGS: Bony alignment and mineralization are normal. There are intact bilateral hip total arthroplasties. No hardware failure or loosening is seen. There is no periprosthetic fracture. The bilateral sacroiliac joints are symmetric and well-maintained. The pubic symphysis is intact. There are incompletely characterized degenerative changes of the lumbar spine. XR/XR pelvis 1-2V IMPRESSION: There are intact bilateral hip total arthroplasties.
== END 2022-12-28 07:06 | disposition home or self-care (01) ==
LOC: HO.HOSX 07:05
PROVIDERS: Visit Provider Physician Assistant
DX: Z47.1 Aftercare following joint replacement surgery (principal); Z96.642 Presence of left artificial hip joint
CPT/HCPCS: 72170; 99212

== ENCOUNTER 2023-10-05 09:14 | Outpatient (REF) | payer OTHER, MEDICAID, SELFPAY ==
[2023-10-05 12:30] LABS: Alanine Aminotransferase 21 U/L (0-40); Albumin Level 4.4 g/dL (3.5-5.0); Alkaline Phosphatase 55 U/L (39-117); Anion Gap 17 (12-20); Aspartate Amino Transferase 21 U/L (5-37); Bilirubin Total 0.6 mg/dL (0.0-1.0); Blood Urea Nitrogen 17 mg/dL (9-16); Calcium 9.6 mg/dL (8.4-10.2); Carbon Dioxide 25 mmol/L (22-29); Chloride 103 mmol/L (96-108); Cholesterol 177 mg/dL (<200); Estimated Glomerular Filt Rate > 60; Glucose Random 97 mg/dL (60-115); HDL Cholesterol 40 mg/dL (>40); LDL Cholesterol Calculated 114 mg/dL (<100); Potassium 4.5 mmol/L (3.3-5.1); Sodium 140 mmol/L (135-145); Total Protein 7.9 g/dL (6.5-8.0); Triglycerides 119 mg/dL (<150)
[2023-10-14 12:49] LABS: Testosterone, Total 269 ng/dL (250-1100)
== END 2023-10-05 09:15 | disposition home or self-care (01) ==
LOC: HO.HHCL 09:14
PROVIDERS: Visit Provider Nurse Practitioner Primary Care
DX: R03.0 Elevated blood-pressure reading, without diagnosis of hypertension (principal); R79.89 Other specified abnormal findings of blood chemistry; R73.03 Prediabetes
CPT/HCPCS: 36415; 80053; 80061; 84402; 84403

== ENCOUNTER 2024-05-16 08:44 | Outpatient (REF) | payer OTHER, MEDICAID, SELFPAY ==
[2024-05-16 12:09] LABS: Estimated Average Glucose 120 mg/dL; Hemoglobin A1C 132.7277 umol/L; Hemoglobin A1c % 5.8 % (<6.0)
[2024-05-16 12:31] LABS: Alanine Aminotransferase 18 U/L (0-40); Albumin Level 4.2 g/dL (3.5-5.0); Alkaline Phosphatase 54 U/L (39-117); Anion Gap 11 (12-20); Aspartate Amino Transferase 21 U/L (5-37); Bilirubin Total 0.7 mg/dL (0.0-1.0); Blood Urea Nitrogen 14 mg/dL (9-16); Calcium 9.3 mg/dL (8.4-10.2); Carbon Dioxide 24 mmol/L (22-29); Chloride 112 mmol/L (96-108); Cholesterol 180 mg/dL (<200); Estimated Glomerular Filt Rate > 60; Glucose Random 96 mg/dL (60-115); HDL Cholesterol 46 mg/dL (>40); LDL Cholesterol Calculated 119 mg/dL (<100); Potassium 4.6 mmol/L (3.3-5.1); Sodium 142 mmol/L (135-145); Total Protein 7.1 g/dL (6.5-8.0); Triglycerides 78 mg/dL (<150)
[2024-05-16 12:45] LABS: HIV AB/AG Nonreactive (Nonreactive); HIV Num 1 0.05 S/CO (0.00-0.99); ~HepC Num1 0.11 S/CO (0.00-0.79); ~Hepatitis C Antibody Nonreactive (Nonreactive)
[2024-05-16 12:48] LABS: Vitamin B12 346 pg/mL (200-900)
[2024-05-16 12:50] LABS: TSH reflex Free T4 2.43 uIU/mL (0.32-4.0)
[2024-05-19 13:38] LABS: RPR Rapid Plasma Reagin NON-REACTIVE (NON-REACTIVE)
== END 2024-05-16 08:45 | disposition home or self-care (01) ==
LOC: HO.HHCL 08:44
PROVIDERS: Visit Provider Nurse Practitioner Primary Care
DX: E11.59 Type 2 diabetes mellitus with other circulatory complications (principal); I15.2 Hypertension secondary to endocrine disorders; R20.0 Anesthesia of skin; R20.2 Paresthesia of skin; Z11.3 Encounter for screening for infections with a predominantly sexual mode of transmission
CPT/HCPCS: 36415; 80053; 80061; 82607; 83036; 84443; 86592; 86803; 87389

== ENCOUNTER 2024-12-10 08:09 | Outpatient (REF) | payer OTHER, SELFPAY ==
--- OUTSIDE RECORDS SUMMARY | 2024-12-10 08:15 | XMS_ITS | Encounter Summary ---
Author Organization [employer] Address [address] [facility] [facility] [address] [place] [address] Care Team Providers Care Sample Carrier Name Role Phone Whit Montes De Oca Primary Care Provider [phone] Reason for Visit * Reason Onset Date Comments Created in error 03/21/2024 Encounter Details Date Type Department Care Team ([facility] st Contact Info) Description 03/21/2024 Telephone [facility] MEDICINE [address] [place], [place] [phone] Whit Montes D eOca ANP [address] [place], [place] [phone] Created in error Social History Tobacco Use Types Packs/Day Years Used Date Smoking Tobacco: Former Cigarettes Smokeless Tobacco: Never Alcohol Use Standard Drinks/Week Comments Not Currently 0 (1 standard drink = 0.6 oz pur e alcohol) Housing Stability Answer Date Recorded What is your housing situation today? I have sidra ferrari 11/23/[address] you li ve. Do you have problems with any of the following? I am not sure 11/23/2023 Food Insecurity Answer Date Recorded Within the past 12 months, y ou worried that your food would run out before you got money to buy more: Often true 11/23/2023 Within the past 12 months,th e food you bought just didn't last and you didn't have enough money to get more: Often true Transportation Answer Date Recorded In the past 12 months, has l ack of transportation kept you from medical appts, meetings, work or from getting things needed for daily living? No 07/14/2023 Utilities Answer Date Recorded In the past 12 months, has t he electric, gas, oil or water company threatened to shut off services in your home? No 07/14/2023 Sex and Gender Information Value Date Recorded Sex Assigned at Male 07/03/2022 10:32 AM EDT Legal Sex Male 10:32 AM EDT Gender Identity Male 07/03/2022 10:32 AM EDT Sexual Orientation Choose not to disclose 2021 10:32 AM EDT documented as of this encounter Plan of Treatment Upcoming Encounters Date Type Department Care Team (Late st Contact Info) Description 01/22/2025 9:15 AM EDT Office Visit [facility] MEDICINE [address] [place] [address] Whit Montes De Oca ANP [address] [place] [address] documented as of this encounter Visit Diagnoses Not on filedocumented in this encounter Care Teams Sample Carrier Relationship Specialty Start Date End Date Whit Montes De Oca ANP [address] [place] [address] PCP - General Family Medicine 03/03/20 documented as of this encounter
--- OUTSIDE RECORDS SUMMARY | 2024-12-10 08:15 | XMS_ITS | Encounter Summary ---
Author Organization [employer] [facility] Address [address] [facility] [address] [place] [address] Care Team Providers Care Reach Lift Truck Driver Name Role Phone Whit Montes De Oca Primary Care Provider [phone] Encounter Details Date Type Department Care Team (Latest Contact Info) Description 12/30/2018 Abstract [facility] CONVERSIONS Dental, Provider, DDS Social History Tobacco Use Types Packs/Day Years Used Date Smoking Tobacco: Never Assessed Sex and Gender Information Value Date Recorded [...] Description 01/22/2025 9:15 AM EDT Office Visit [facility] MEDICINE [address] [place] [address] Whit Montes De Oca ANP [address] [place] [address] documented as of this encounter Visit Diagnoses Not on filedocumented in this encounter Care Teams Reach Lift Truck Driver Relationship Specialty Start Date End Date Whit Montes De Oca ANP [address] [place] [phone] PCP - General Family Medicine 03/03/20 documented as of this encounter
--- OUTSIDE RECORDS SUMMARY | 2024-12-10 08:15 | XMS_ITS | Encounter Summary ---
Author Organization [employer] Address [address] [facility] [address] [place] [address] Care Team Providers Care Round Cutter Operator Name Role Phone Whit Montes De Oca OCTAVIO Primary Care Provider [phone] Encounter Details Date Type Department Care Team (Late st Contact Info) Description 06/09/2024 Orders Only [facility] MEDICINE [address] [place], [place] [phone] Provider, MD Garret Social History Tobacco Use Types Packs/Day Years Used Date Smoking Tobacco: Former Cigarettes Smokeless Tobacco: Never Alcohol Use Standard Drinks/Week Comments Not Currently 0 (1 standard drink = 0.6 oz pur e alcohol) Housing Stability Answer Date Recorded What is your housing situation today? I have sdira ferrari 11/23/[address] you [...] off services in your home? No 07/14/2023 Depression Answer Date Recorded Patient Health Questionnaire-2 Score 0 05/15/2024 Sex and Gender Information Value Date Recorded [...] Description 01/22/2025 9:15 AM EDT Office Visit [facility] MEDICINE [address] [place] [address] Whit Montes De Oca ANP [address] [place] [address] documented as of this encounter Visit Diagnoses Not on filedocumented in this encounter Care Teams Round Cutter Operator Relationship Specialty Start Date End Date Whit Montes De Oca ANP [address] [place] [id number] PCP - General Family Medicine 03/03/20 documented as of this encounter
--- OUTSIDE RECORDS SUMMARY | 2024-12-10 08:15 | XMS_ITS | Encounter Summary ---
Author Organization [employer] Address [address] [facility] [address] [place] [address] Care Team Providers Care Pipe Maker Name Role Phone Whit Montes De Oca Primary Care Provider [phone] Reason for Visit * Reason Comments Med Refill Encounter Details Date Type Department Care Team ([facility] st Contact Info) Description 02/27/2024 Refill [facility] MEDICINE [address] [place], [place] [phone] Whit Montes De Oca ANP [address] [place], [place] [phone] BMI 45.0-49.9, adult (CMS/HCC); Class 3 severe obesity with serious comorbidity and body mass index (BMI) of 45.0 to 49.9 in adult, unspecified obesity type (CMS/HCC) Social History Tobacco Use Types Packs/Day Years [...] Description 01/22/2025 9:15 AM EDT Office Visit [facility] MEDICINE [address] [place] [id number] Whit Montes De Oca ANP [address] [place] [address] documented as of this encounter Visit Diagnoses Diagnosis BMI 45.0-49.9, adult (CMS/HCC) Class 3 severe obesity with serious comorbidity and body mass index (BMI) of 45.0 to 49.9 in adult, unspecified obesity type (CMS/HCC) documented in this encounter Care Teams Pipe Maker Relationship Specialty Start Date End Date Whit Montes De Oca ANP [address] [place] [phone] PCP - General Family Medicine 03/03/20 documented as of this encounter
--- OUTSIDE RECORDS SUMMARY | 2024-12-10 08:15 | XMS_ITS | Encounter Summary ---
Author Organization [employer] Address [address] [facility] [address] [place] [address] Care Team Providers Care Rail Transportation Operator Name Role Phone Whit Montes De Oca Primary Care Provider [phone] Reason for Visit * Reason Onset Date Comments Med Refill 03/20/2024 Encounter Details Date Type Department Care Team ([facility] st Contact Info) Description 03/20/2024 Telephone [facility] MEDICINE [address] [place], [place] [phone] Whit Montes De Oca ANP [address] [place], [place] [phone] Med Refill Social History Tobacco Use Types Packs/Day Years [...] AM EDT documented as of this encounter Miscellaneous Notes * Telephone Encounter - Luciana Kelsey RN - 03/21/2024 11:49 AM EDT Pt came into the office requesting a refill on Topiramate. Pt was prescribed this back in 12/2023. Discontinued on 02/12/24 as pt was doing well on Trulicity at the time. Pt states that there were no negative side effects and wants to start back on this. Currently still on Trulicity. Pt advised that PCP is out of the office until 03/24 but will be advised of the request. * Telephone Encounter - Sumanth Young - 03/21/2024 9:12 AM EDT Tc from pt calling in regards to message prior. Pt is requesting refill for topiramate (Topamax) 50MG tablet but seems medication is discontinued. If any questions please contact pt at [phone]. * Telephone Encounter - Yesy Chisholm LPN - 03/20/2024 3:31 PM EDT Medication discontinued. * Telephone Encounter - Kassie Minor - 03/20/2024 3:26 PM EDT TC from pt requesting medication refill. Medications needing refill : topiramate (Topamax) 50 MG tablet To be sent to: [facility] - [place], [place] - [address] [facility] documented in this encounter Plan of Treatment Upcoming Encounters Date Type Department Care Team (Late st Contact Info) Description 01/22/2025 9:15 AM EDT Office Visit [facility] MEDICINE [address] [place] [address] Whit Montes De Oca ANP [address] [place] [address] documented as of this encounter Visit Diagnoses Not on filedocumented in this encounter Care Teams Rail Transportation Operator Relationship Specialty Start Date End Date Whit Montes De Oca ANP [address] [place] [id number] PCP - General Family Medicine 03/03/20 documented as of this encounter
--- OUTSIDE RECORDS SUMMARY | 2024-12-10 08:15 | XMS_ITS | Clinical Summary ---
Author Organization [employer] Address 75 [facility] 7t [place] [address] Care Team Providers Care Petroleum Analyst Name Role Phone Whit Montes De Oca OCTAVIO Primary Care Provider [phone] Allergies No known active allergies Medications naloxone (Narcan) 4 mg/0.1 mL nasal spray Administer 0.1 mL into affected nostril(s). Active atorvastatin (Lipitor) 20 MG tabletIndications :Dyslipidemia Take 1 tablet (20 mg) by mouth at bedtime. 90 tablet 3 024 Active acetaminophen (Tylenol) 325 MG tabletIndications :Primary osteoarthritis of both hips Take 2 tablets (650 mg) by mouth every 6 (six) hours if needed for moderate pain. 240 tablet 024 Active FREESTYLE LITE test stripIndications: Hypertension associated with diabetes ([facility]) Use to test blood sugar up to twice daily 100 each 12 024 2024 Active Lancets miscIndications:H ypertension associated with diabetes ([facility]) Use to test blood sugar up to twice daily 100 each 024 Active Alcohol Swabs 70 % padsIndications:H ypertension associated with diabetes (CMS/HCC) Use to clean skin before fingerstick 100 each 024 Active Blood Glucose Monitoring Suppl (FreeStyle Gaffney Lite) w/Device kitIndications:Hy pertension associated with diabetes ([facility]) Use to test blood sugar up to twice daily 1 kit 024 Active sildenafil (Viagra) 50 MG tabletIndications :Erectile dysfunction, unspecified erectile dysfunction type Take 1 tablet (50 mg) by mouth if needed for erectile dysfunction. 40 tablet 1 024 Active topiramate 50 MG tabletIndications :Class 3 severe obesity with serious comorbidity and body mass index (BMI) of 40.0 to 44.9 in adult, unspecified obesity type (CMS/HCC) Take 1 tablet (50 mg) by mouth 2 times daily. 60 tablet 2 025 Active Dulaglutide (Trulicity) 3 MG/0.5ML solution auto-injectorIndi cations:Hypertens ion associated with diabetes (CMS/HCC) Inject 3 mg under the skin 1 (one) time per week. 2 mL 5 025 Active celecoxib (CeleBREX) 100 MG capsuleIndication s:Pain of right hip TAKE 1 TO 2 CAPSULES BY MOUTH DAILY NEEDED FOR PAIN WITH FOOD 60 capsule 1 025 Active celecoxib (CeleBREX) 100 MG capsuleIndication s:Pain of right hip Take 1-2 capsules as needed for pain with food 60 capsule 1 025 2024 Discontinued Active Problems Problem Noted Date Diagnosed Date Screening for lung cancer 09/23/2024 Overview (09/23/2024): LDCT referral sent 09/23/24 History of colon polyps 02/12/2024 Overview (02/12/2024): Last colonoscopy 07/2019. Unable to locate pathology report. Referral to [facility] for colonoscopy repeat 02/12/24 Status post left hip replacement 02/12/2024 Overview (02/12/2024): 12/2022 [facility] Orth[facility] Hypertension associated with diabetes 10/24/2023 Overview (05/15/2024): Lab Results Component Value Date HGBA1C 6.7 (A) 10/04/2023 HGBA1C 5.6 11/23/2022 HGBA1C 5.9 (H) 10/11/2021 A1c 6.7% 10/04/23, dx'd w/ DM. Trulicity 1.5mg (increase 02/12/24). A1c at goal < 7.0 and doing well. Affirmed great exercise and encouraged to continue Previously on metformin XR 750. Self discontinued previously when he got really physically active. Eye exam 12/13/23: no retinopathy or macular edema On statin, not on ASA or ACEi/ARB Foot exam normal pulses, abnormal sensation bilaterally 05/15/24 PCV20 UTD Primary osteoarthritis of both hips 12/11/2018 Decreased testosterone level 10/01/2018 Overview (02/12/2024): Normal 10/2023 Vitamin D deficiency 10/01/2018 Uncomplicated opioid dependence 07/20/2017 Posttraumatic stress disorder 07/20/2017 Resolved Problems Problem Noted Date Diagnosed Date Resolved Date Prediabetes 10/04/2023 02/12/2024 Encounters Date Type Department Care Team Description 11/22/2024 Refill [facility] [address] [place] [phone] Whit Montes De Oca ANP Pain of right hip 09/23/2024 9:15 AM EST Office Visit [facility] [address] [place] [phone] Whit Montes De Oca ANP Hypertension associated with diabetes (CMS/HCC) (CMS/HCC) (Primary Dx); Pain of right hip; Class 3 severe obesity with serious comorbidity and body mass index (BMI) of 40.0 to 44.9 in adult, unspecified obesity type (CMS/HCC); Stopped smoking with greater than 20 pack year history; Screening examination for STI; Screening for lung cancer 09/23/2024 Travel 09/11/2024 Patient Outreach [facility] [address] [place] [address] Whit Montes De Oca ANP Pre-visit Planning ([facility] screening was completed on 11/23/2023) from Last 3 Months Immunizations Name Administration Dates Next Due Hep B, adult 02/26/2018,09/04/2017,07/31/2017 Influenza Injectable Quadriv alant Preservative Free IIV4 MDCK 05/28/2023,06/26/2022,05/10/2019 Influenza injectable quadriv alent IIV4 with preservative 05/22/2018,07/20/2017 Influenza injectable quadriv alent preservative free 10/04/2023,07/01/2021,05/16/2021,04/27 Influenza, IIV3, injectable 05/30/2016 Influenza, intradermal, quad rivalent, preservative free 05/30/2016 Influenza, seasonal, injecta ble, preservative free 05/15/2024 Moderna Covid-19 Vaccine 12+ 12/24/2021, 08/20/2021,12/23/2020,11/25 Pfizer Covid-19 Vaccine 12+ 09/23/2024 Pneumococcal Conjugate PCV 20 10/04/2023 Pneumococcal Polysaccharide PPSV23 04/20/2020, RSV Adjuvant 02/12/2024 Tdap 04/20/2020,04/18/2013 Zoster, Recombinant 07/04/2021,04/20/2020 Social History Tobacco Use Types Packs/Day Years Used Date Smoking Tobacco: Former Cigarettes Smokeless Tobacco: Never Tobacco Cessation:Counseling Given: Not Answered Alcohol Use Standard Drinks/Week Comments Not Currently [...] not to disclose 2021 10:32 AM EDT Last Filed Vital Signs Vital Sign Reading Time Taken Comments Blood Pressure 122/67 09/23/2024 9:28 AM EST Pulse 87 09/23/2024 9:28 AM EST Temperature 36.2 ??C (97.1 ??F) 09/23/2024 9:28 AM ES T Respiratory Rate 16 09/23/2024 9:28 AM EST Oxygen Saturation 96% 09/23/2024 9:28 AM EST Inhaled Oxygen Concentration - - Weight 114 kg (251 lb 9.6 oz) 09/23/2024 9:28 AM EST Height 167.6 cm (5' 6 ) 05/15/2024 9:13 AM EDT Body Mass Index 40.61 05/15/2024 9:13 AM EDT Plan of Treatment Upcoming Encounters Date Type Department Care Team (Late st Contact Info) Description 01/22/2025 9:15 AM EDT Office Visit [facility] [address] [place] [address] Whit Montes De Oca, ANP [address] [place], [place] [phone] Health Maintenance Due Date Last Done Comments CT Colonography 1963 FIT DNA/Cologuard 1963 FIT 1963 FOBT 1963 Sigmoidoscopy 1963 Diabetes: Urine Protein Screening 11/30/2021 11/30/2020, 07/13/2020 Colonoscopy 07/21/2024 07/21/2019 Colorectal Cancer Screening 07/21/2024 SDOH Screening 11/22/2024 11/23/2023 Diabetes: Hemoglobin A1C 03/23/2025 025, 05/16/2024, 05/15/2024, Additional history exists Depression Screening 05/15/2025 05/15/2024, 05/15/20 24 Diabetes: Foot Exam 05/15/2025 05/15/2024, 05/15/2024, 05/15/2024, Additional history exists Lipid Panel 05/16/2025 05/16/2024, 02/0 10/2023, 01/13/2022, Additional history exists Alcohol/Substance Use Screening 09/23/2025 09/23/2024 Tobacco Screening 09/23/2025 09/23/2024 Eye Exam 12/12/2025 12/13/2023, 12/02, 12/13/2023 DTaP/Tdap/Td Vaccines (3 - Td or Tdap) 04/20/2030 04/20/2020, 04/18/2013 Hepatitis B Vaccines Completed 02/26/2018, 09/04/2017, 07/31/2017 Zoster Vaccines Completed 07/04/2021, 04/20/2020 Pneumococcal Vaccine: 50+ Years Completed 10/04/2023, 04/20/2020, 08/12/2019 RSV Patients and Patients Aged 60 years or older Completed 02/12/2024 HIV Screening Completed 05/16/2024, 01/13/2022 Hepatitis C Screening Completed 05/16/2024, 022 COVID-19 Vaccine Completed 09/23/2024, , 06/26/2022, Additional history exists Influenza Vaccine Completed 09/28/2024, , 10/04/2023, Additional history exists HIB Vaccines Aged Out No longer eligi ble based on patient's age to complete this topic HPV Vaccines Aged Out No longer eligi ble based on patient's age to complete this topic Hepatitis A Vaccines Aged Out No long er eligible based on patient's age to complete this topic IPV Vaccines Aged Out No longer eligi ble based on patient's age to complete this topic Meningococcal Vaccine Aged Out No moises pari eligible based on patient's age to complete this topic RSV under 20 months Aged Out No longe r eligible based on patient's age to complete this topic Rotavirus Vaccines Aged Out No longer eligible based on patient's age to complete this topic Procedures Procedure Name Priority Date/Time Associated Diagnosis Comments POCT GLYCATED HEMOGLOBIN, TOTAL Routine 09/23/2024 9:40 AM EST Hypertension associated with diabetes (CMS/HCC) (CMS/HCC) POCT GLUCOSE Routine 09/23/2024 9:33 AM EST Hypertension associated with diabetes (CMS/HCC) (CMS/HCC) HEPATITIS C AB W/REFL TO HCV RNA, QN, PCR Routine 05/16/2024 8:53 AM EDT Screening examination for STI HIV 1/2 ANTIGEN/ANTIBODY, FOURTH GENERATION W/RFL Routine 05/16/2024 8:53 AM EDT Screening examination for STI LIPID PANEL, STANDARD Routine 05/16/2024 8:53 AM EDT Hypertension associated with diabetes (CMS/HCC) (CMS/HCC) DIABETES EYE EXAM Routine 12/13/2023 2:54 PM EDT ALBUMIN, RANDOM URINE W/CREATININE Routine 11/30/2020 8:49 AM EDT COLONOSCOPY Routine 07/21/2019 from Last 3 Months or Most Recently Relevant to Health Maintenance Results * POCT HGB A1C (09/23/2024 9:40 AM EST) Pathologist [facility] Hemoglobin A1C 6.0 4.0 - 6.0 % QC Media Lot # [id number] Lot# Expiration Date Blood 09/23/2024 9:40 AM EST us Whit [place] POINT OF CARE TEST ENTER/EDIT OR DERABLES Edited Result - Final * POCT Glucose (09/23/2024 9:33 AM EST) Pathologist [facility] Glucose Blood, POC 123 60 - 200 mg/dL QC Media Lot # [id number] Lot# Expiration Date ,025 Blood Capillary blood specimen / Unknown 09/23/2024 9:33 AM EST us Whit [place] POINT OF CARE TEST ENTER/EDIT OR DERABLES Final Result * Hepatitis C Antibody with Reflex to HCV, RNA, Quantitative, Real-Time PCR (05/16/2024 8:53 AM EDT) Pathologist [facility] Hepatitis C Antibody Nonreactive Nonreactive [facility] Comment:Antibodies to HCV no t detected; does not exclude early acuteHCV infection. Blood Venous blood specimen / Unknown 05/16/2024 8:53 AM EDT 05/16/2024 11:48 AM EDT Whit Montes De Oca ANP LAB BLOOD ORDERABLES Final Resul t Performing Organization Address [facility] Co de Phone Number [facility] [address] [place] [phone] * HIV-1/2 Antigen and Antibodies, Fourth Generation, with Reflexes (05/16/2024 8:53 AM EDT) HIV AB/AG Nonreactive Nonreactive [facility] Comment:HIV-1 p24 Ag and/or HIV-1/HIV-2 Ab not detected.A test result that is nonreactive does not exclude thepossibility of exposure to or infection with HIV-1 and/orHIV-2. Nonreactive results in this assay for individualswith prior exposure to HIV-1 and/or HIV-2 may be due toantigen and antibody levels that are below the limit ofdetection of this assay.The Sand Sign HIV Ag/Ab Combo assay result andsupplemental assay results should be interpreted inconjunction with the patient's clinical presentation,history and other laboratory results. If the results areinconsistent with clinical evidence, additional testing issuggested to confirm the result. Blood Venous blood specimen / Unknown 05/16/2024 8:53 AM EDT 05/16/2024 11:48 AM EDT us Whit Montes De Oca ANP LAB BLOOD ORDERABLES Final Resul t Performing Organization Address [facility] Co de Phone Number [facility] [address] [place] [phone] * (ABNORMAL) Lipid Panel, Standard (05/16/2024 8:53 AM EDT) Triglycerides 78 <150 mg/dL [facility] Comment:Desirable Triglyceri de: less than 150 mg/dLBorderline High Triglyceride 150-199 mg/dLHigh Triglyceride: 200-499 mg/dLVery High Triglyceride: greater than or equal to 5OO mg/dL Cholesterol 180 <200 mg/dL [facility] Comment:Desirable Cholestero l: less than 200 mg/dLBorderline High Cholesterol: 200-239 mg/dLHigh Cholesterol: greater than 239 mg/dL LDL Cholesterol Calculated 119(H) <100 mg/dL [facility] Comment:Desirable LDL: less than 100 mg/dLNear Optimal/Above Optimal LDL: 110- 129 mg/dLBorderline High LDL: 130-159 mg/dLHigh LDL: 160-189 mg/dLVery High LDL: greater than or equal to 190 mg/dL HDL Cholesterol 46 >40 mg/dL [facility] Comment:Desirable HDL: great er than 40 mg/dL Note: This HDL assay may give artificially low results in patients with liver disease. Blood Venous blood specimen / Unknown 05/16/2024 8:53 AM EDT 05/16/2024 11:48 AM EDT [facility] LAB BLOOD ORDERABLES Final Resul t [facility] [address] [place] [phone] * Diabetes Eye Exam (12/13/2023 2:54 PM EDT) Historical Provider HEALTH MAINTENANCE Final Result * ALBUMIN, RANDOM URINE W/CREATININE (11/30/2020 8:49 AM EDT) Microalbumin Urine 0.7 See Note: mg/dL [facility] Comment: Reference Range: ?? Reference Range Not established Microalb/Creat Ratio 7 <30 mcg/mg creat [facility] Comment: ?? The ADA defines abnormalities in albumin excretion as follows: ?? Category ? Result (mcg/mg creatinine) ?? Normal ?<30 Microalbuminuria ? 30-299 ?? Clinical albuminuria ?? > OR = 300 ?? The ADA recommends that at least two of three specimens collected within a 3-6 month period be abnormal before considering a patient to be within a diagnostic category. Creatinine, Urine 99 20 - 320 mg/dL [facility] 11/30/2020 8:49 AM EDT Whit [place] LAB URINE ORDERABLES Final Resul t [facility] [address] * Colonoscopy (07/21/2019) Colonoscopy Normal Normal Historical Provider MD HEALTH MAINTENANCE Final Result from Last 3 Months or Most Recently Relevant to Health Maintenance Insurance - [employer] Care Teams Petroleum Analyst Relationship Specialty Start Date End Date Whit Montes De Oca ANP [address] [place] [phone] PCP - General Family Medicine 03/03/20
--- OUTSIDE RECORDS SUMMARY | 2024-12-10 08:15 | XMS_ITS | Encounter Summary ---
Author Organization [employer] Address [address] [facility] 7t [place] [address] Care Team Providers Care Blankbook Forwarder Name Role Phone Whit Montes De Oca Primary Care Provider [phone] Encounter Details Date Type Department Care Team (Late st Contact Info) Description 03/31/2024 Telephone [facility] MED[facility]INE [address] [place], [place] [phone] Whit Montes De Oca ANP [address] [place], [place] [phone] Social History Tobacco Use Types Packs/Day Years [...] encounter Miscellaneous Notes * Telephone Encounter - Amanda Alejandrina - 03/31/2024 11:39 AM EDT documented in this encounter Plan of Treatment Upcoming Encounters Date Type Department Care Team (Late st Contact Info) Description 01/22/2025 9:15 AM EDT Office Visit [facility] MED[facility]INE [address] [place] [phone] Whit Montes De Oca ANP [address] [place] [phone] documented as of this encounter Visit Diagnoses Not on filedocumented in this encounter Care Teams Blankbook Forwarder Relationship Specialty Start Date End Date Whit Montes De Oca ANP [address] [place] [phone] PCP - General Family Medicine 03/03/20 documented as of this encounter
--- OUTSIDE RECORDS SUMMARY | 2024-12-10 08:16 | XMS_ITS | Encounter Summary ---
Author Organization [employer] Address [address] [facility] 7t [place] [address] Care Team Providers Care Wood Shingle Roofer Name Role Phone Whit Montes De Oca Primary Care Provider [phone] Reason for Visit * Reason Comments Med Refill Encounter Details Date Type Department Care Team ([facility] st Contact Info) Description 09/03/2024 Refill [facility] [address] [place], [place] [phone] Whit Montes De Oca ANP [address] [place], [place] [phone] Erectile dysfunction, unspecified erectile dysfunction type Social History Tobacco Use Types Packs/Day Years [...] Description 01/22/2025 9:15 AM EDT Office Visit [facility] [address] [place] [phone] Whit Montes De Oca ANP [address] [place] [phone] documented as of this encounter Visit Diagnoses Diagnosis Erectile dysfunction, unspecified erectile dysfunction type documented in this encounter Care Teams Wood Shingle Roofer Relationship Specialty Start Date End Date Whit Montes De Oca ANP [address] [place] [phone] PCP - General Family Medicine 03/03/20 documented as of this encounter
[2024-12-10 12:09] LABS: Cholesterol 120 mg/dL (<200); HDL Cholesterol 41 mg/dL (>40); LDL Cholesterol Calculated 59 mg/dL (<100); Triglycerides 102 mg/dL (<150)
[2024-12-10 12:28] LABS: HIV AB/AG Nonreactive (Nonreactive); HIV Num 1 0.06 S/CO (0.00-0.99)
[2024-12-10 12:50] LABS: Creatinine Urine 158.68 mg/dL; Microalbum/Creatinine Ratio Ur 6.9 ug/mg cr (<30)
[2024-12-11 11:58] LABS: RPR Rapid Plasma Reagin NON-REACTIVE (NON-REACTIVE)
== END 2024-12-10 08:10 | disposition home or self-care (01) ==
LOC: HO.HHCL 08:09
PROVIDERS: Visit Provider Nurse Practitioner Primary Care
DX: E11.59 Type 2 diabetes mellitus with other circulatory complications (principal); I15.2 Hypertension secondary to endocrine disorders; Z20.2 Contact with and (suspected) exposure to infections with a predominantly sexual mode of transmission
CPT/HCPCS: 36415; 80061; 82043; 82570; 86592; 87389